=== PATIENT | female | born 1965 | race Two or more races ===

== ENCOUNTER 2021-09-14 08:51 | Inpatient (IN) | payer OTHER ==
[~2021-09-14] VITALS: Ht 175.3 cm; Wt 71.7 kg
--- NOTE | 2021-09-14 09:34 | NUR ---
SE RECIBE PTE ALERTA Y ORIENTADA X3,REFIERE TENER DIFICULTAD PARA CAMINAR LA PIERNA DERECHA LA MUEVE POCO LA ARRASTRA,NO TIENE DOLOR,REFIERE HABERSE QUEMADO EL BRAZO DERECHO EL LE CARLA.
--- NOTE | 2021-09-14 10:23 | NUR ---
PACIENTE EVALUADO POR EL QUIEN ORDENA TRATAMIENTO MEDICO. SE ORIENTA PACIENTE SOBRE TRATAMIENTO A SEGUIR. RN BOWERS REALIZA MUESTRAS BAJO MEDIDAS ASEPTICAS Y ADMINISTRA MEDICAMENTOS ANY ORDEN. PTE REHUSA PRUEBA INFLUENZA Y COVID. SE NOTIFICA A DR ELAINE.
--- NOTE | 2021-09-14 15:08 | NUR ---
SE RECIBE PTE ALERTA Y ORIENTADA X3 QUIEN ESTA EN ESPERA DE CONSULTA CON DR ADDY FERNANDEZ. PTE CON H/L EN ANTEBRAZO LT PATENTE AL MOMENTO CON ANGIO #22. SE MANTIENE EN CAMA POSICION MAS BAJA CON BARANDAS ELEVADAS Y CAPONE DE IDENTIFICACION POR SEGURIDAD.
[2021-09-18] MEDS ORDERED: LIPITOR40 MG PO (10:15)
[2021-09-18] MEDS ORDERED: CARdura 2MG TABLET PO (10:15)
[2021-09-18] MEDS ORDERED: LOSARTAN POTAS100 MG PO (10:15)
[2021-09-18] MEDS ORDERED: ADULT ASPIRIN81 MG PO (10:15)
[2021-09-18] MEDS ORDERED: CLOPIDOGREL BIS75 MG PO (10:15)
== END 2021-09-18 11:41 | disposition home or self-care (01) | DRG 66 ==
LOC: ER 08:51 → SURH 20:33 → MEDJ 09-16 17:09
PROVIDERS: ADMIT Internal Medicine; ATTEND Internal Medicine
PROC: B020ZZZ Computerized Tomography (CT Scan) of Brain (ICD-10-PCS; principal; 2021-09-14)
PROC: B246YZZ Ultrasonography of Right and Left Heart using Other Contrast (ICD-10-PCS; 2021-09-14)
PROC: B030ZZZ Magnetic Resonance Imaging (MRI) of Brain (ICD-10-PCS; 2021-09-14)
PROC: B345ZZZ Ultrasonography of Bilateral Common Carotid Arteries (ICD-10-PCS; 2021-09-14)
PROC: B348ZZZ Ultrasonography of Bilateral Internal Carotid Arteries (ICD-10-PCS; 2021-09-14)
PROC: 4A12X4Z Monitoring of Cardiac Electrical Activity, External Approach (ICD-10-PCS; 2021-09-14)
DX: I63.81 Other cerebral infarction due to occlusion or stenosis of small artery (principal); Z86.73 Personal history of transient ischemic attack (TIA), and cerebral infarction without residual deficits; I10 Essential (primary) hypertension; I99.8 Other disorder of circulatory system; E78.00 Pure hypercholesterolemia, unspecified; G46.3 Brain stem stroke syndrome; R29.710 NIHSS score 10; Z20.822 Contact with and (suspected) exposure to COVID-19
CPT/HCPCS: 70551